=== PATIENT | female | born 1980 | race Caucasian/White ===

== ENCOUNTER 2021-03-18 20:39 | Inpatient (IN) | payer OTHER ==
[~2021-03-18 20:39] MED LIST: Iopamidol-370 76% 500 ML 1 ML ONE
[2021-03-18 21:03] LABS: #Basophils 0.1 thou/uL (0.0-0.2); #Eosinphils 0.1 thou/uL (0.0-0.7); #Lymphocytes 2.3 thou/uL (1.20-3.40); #Monocytes 0.5 thou/uL (0.11-0.59); #Neutrophils 7.2 thou/uL (1.40-6.50); %Basophils 0.9 % (0.0-1.0); %Eosinophils 0.7 % (0.0-10.0); %Lymphocytes 22.6 % (21.0-51.0); %Neutrophils 70.8 % (42.0-75.0); Mean Corpuscular HGB CONC 35.3 g/dL (32.0-36.0); Mean Corpuscular Hemoglobin 33.7 pg (27.0-31.0); Mean Corpuscular Volume 95.5 fL (78.0-98.0); Mean Platelet Volume 8.3 fL (7.4-10.4); Platelet Count 248 thou/uL (130-400); RBC Distribution Width 12.4 % (11.5-14.5); Red Blood Cell (RBC) Count 4.44 mill/uL (4.20-5.40); White Blood Cell (WBC) Count 10.2 thou/uL (4.8-10.8)
[2021-03-18] MEDS ORDERED: Fentanyl 100 MCG/2 ML VIAL ONE ×2 (21:06→22:58)
[2021-03-18 21:13] LABS: Prothrombin Time 13.1 sec (12.0-14.7)
[2021-03-18 21:19] LABS: PTT 22.6 sec (22.9-36.1)
[2021-03-18 22:06] LABS: ALT (SGPT) 99 U/L (8-55); AST (SGOT) 172 U/L (5-34); Albumin 4.1 g/dL (3.5-5.0); Alkaline Phosphatase 67 U/L (40-110); Anion Gap 19 mmol/L (10-20); BUN (Urea Nitrogen) 14 mg/dL (7.0-18.7); Bilirubin, Total 0.5 mg/dL (0.2-1.2); Calc. Creatinine Clearance 0 mL/min (70-130); Calcium 9.1 mg/dL (7.8-10.44); Carbon Dioxide 17 mmol/L (22-29); Chloride 104 mmol/L (98-107); Globulin 3.3 g/dL (2.4-3.5); Glucose 94 mg/dL (70-105); Potassium 3.7 mmol/L (3.5-5.1); Protein, Total 7.4 g/dL (6.0-8.3); Sodium 136 mmol/L (136-145)
[2021-03-18] MEDS ORDERED: traMADol HCl 50 MG TAB PO PRN (22:10)
[2021-03-18] MEDS ORDERED: Dextrose 5% in Water 1,000 ML IV PRN (22:13)
[2021-03-18] MEDS ORDERED: Dextrose 50% Abboject 50 ML SYRINGE SLOW IVP PRN (22:13)
[2021-03-18] MEDS ORDERED: hydrALAZINE 20 MG/ML VIAL SLOW IVP PRN (22:13)
[2021-03-18] MEDS ORDERED: Ondansetron PF 4 MG/2 ML Vial IVP PRN (22:13)
[2021-03-18] MEDS ORDERED: Morphine 4 MG/ML VIAL SLOW IVP PRN (22:23)
[2021-03-18] MEDS ORDERED: Cyclobenzaprine 10 MG TAB PO PRN (22:23)
[2021-03-18] MEDS ORDERED: Lactated Ringer's 1,000 ML IV SCH (22:30)
[2021-03-18 23:32] LABS: Anion Gap 16 mmol/L (10-20); BUN (Urea Nitrogen) 13 mg/dL (7.0-18.7); Calc. Creatinine Clearance 0 mL/min (70-130); Calcium 8.5 mg/dL (7.8-10.44); Carbon Dioxide 18 mmol/L (22-29); Chloride 105 mmol/L (98-107); Glucose 89 mg/dL (70-105); Potassium 3.5 mmol/L (3.5-5.1); Sodium 135 mmol/L (136-145)
[2021-03-19] MEDS ORDERED: Boostrix 0.5 ML (Tdap) VIAL ONE (00:05)
[2021-03-19] MEDS: traMADol HCl 50 MG TAB PO SCH ×4 (01:42→17:25)
[2021-03-19] MEDS: Ibuprofen 200 MG TAB PO SCH ×4 (01:43→17:25)
[2021-03-19] MEDS: Lactated Ringer's 1,000 ML IV SCH ×3 (01:46→11:19)
[2021-03-19 02:16] VITALS: BMI 34.4
[2021-03-19] MEDS ORDERED: Oxazepam 10 MG CAP PO SCH (06:00)
[2021-03-19 06:53] LABS: #Lymphocytes 1.9 thou/uL (1.20-3.40); #Monocytes 0.8 thou/uL (0.11-0.59); #Neutrophils 8.4 thou/uL (1.40-6.50); %Basophils 0.4 % (0.0-1.0); %Eosinophils 0.4 % (0.0-10.0); %Lymphocytes 16.9 % (21.0-51.0); %Monocytes 6.7 % (0.0-10.0); %Neutrophils 75.6 % (42.0-75.0); Mean Corpuscular HGB CONC 33.7 g/dL (32.0-36.0); Mean Corpuscular Hemoglobin 32.4 pg (27.0-31.0); Mean Corpuscular Volume 96.1 fL (78.0-98.0); Mean Platelet Volume 8.6 fL (7.4-10.4); Platelet Count 215 thou/uL (130-400); RBC Distribution Width 12.5 % (11.5-14.5); Red Blood Cell (RBC) Count 4.02 mill/uL (4.20-5.40); White Blood Cell (WBC) Count 11.1 thou/uL (4.8-10.8)
[2021-03-19 07:12] LABS: Magnesium 1.8 mg/dL (1.6-2.6)
[2021-03-19] MEDS: Famotidine/PF 20 mg/2ml Vial SLOW IVP SCH ×2 (11:19→20:39)
[2021-03-19] MEDS: Enoxaparin Sodium 40 MG/0.4 ML SYRINGE SC SCH (11:19)
[2021-03-19] MEDS: Gabapentin 300 MG CAP PO SCH ×3 (11:19→20:39)
[2021-03-19] MEDS: Polyethylene Glycol 3350 17 GM Packet PO SCH (11:19)
[2021-03-19] MEDS: buPROPion 75 MG TAB PO SCH ×2 (11:20→20:40)
[2021-03-19] MEDS: Ascorbic Acid 500 mg Chewable Tablet PO SCH ×2 (11:20→20:39)
[2021-03-19] MEDS: busPIRone HCl 5 MG TAB PO SCH ×2 (11:20→20:39)
[2021-03-19] MEDS: Midodrine HCl 5 MG TAB PO SCH ×3 (11:20→20:39)
[2021-03-19] MEDS: Thiamine 100 MG TAB PO SCH (11:20)
[2021-03-19] MEDS: Folic Acid 1 MG TAB PO SCH (11:20)
[2021-03-19 15:10] LABS: SARS-CoV-2 PCR by NAA Not Detected (NotDetected)
[2021-03-19] MEDS: traZODone HCl 50 MG TAB PO SCH (20:40)
[2021-03-20] MEDS: Ibuprofen 200 MG TAB PO SCH ×5 (00:42→23:19)
[2021-03-20] MEDS: traMADol HCl 50 MG TAB PO SCH ×5 (00:42→23:19)
[2021-03-20] MEDS: buPROPion 75 MG TAB PO SCH ×2 (09:13→21:32)
[2021-03-20] MEDS: Gabapentin 300 MG CAP PO SCH ×3 (09:14→21:33)
[2021-03-20] MEDS: Midodrine HCl 5 MG TAB PO SCH ×3 (09:14→21:33)
[2021-03-20] MEDS: Ascorbic Acid 500 mg Chewable Tablet PO SCH ×2 (09:14→21:32)
[2021-03-20] MEDS: busPIRone HCl 5 MG TAB PO SCH ×2 (09:14→21:33)
[2021-03-20] MEDS: Thiamine 100 MG TAB PO SCH (09:14)
[2021-03-20] MEDS: Folic Acid 1 MG TAB PO SCH (09:14)
[2021-03-20] MEDS: Famotidine/PF 20 mg/2ml Vial SLOW IVP SCH ×2 (09:15→21:33)
[2021-03-20] MEDS: Enoxaparin Sodium 40 MG/0.4 ML SYRINGE SC SCH (09:17)
[2021-03-20] MEDS: Polyethylene Glycol 3350 17 GM Packet PO SCH (09:17)
[2021-03-20] MEDS: traZODone HCl 50 MG TAB PO SCH (21:33)
[2021-03-21] MEDS: Ibuprofen 200 MG TAB PO SCH ×4 (05:40→23:01)
[2021-03-21] MEDS: traMADol HCl 50 MG TAB PO SCH ×4 (05:41→23:01)
[2021-03-21] MEDS: buPROPion 75 MG TAB PO SCH (08:15)
[2021-03-21] MEDS: Midodrine HCl 5 MG TAB PO SCH ×3 (08:16→20:13)
[2021-03-21] MEDS: Ascorbic Acid 500 mg Chewable Tablet PO SCH ×2 (08:16→20:13)
[2021-03-21] MEDS: busPIRone HCl 5 MG TAB PO SCH ×2 (08:16→20:13)
[2021-03-21] MEDS: Gabapentin 300 MG CAP PO SCH ×3 (08:16→20:14)
[2021-03-21] MEDS: Enoxaparin Sodium 40 MG/0.4 ML SYRINGE SC SCH (08:16)
[2021-03-21] MEDS: Folic Acid 1 MG TAB PO SCH (08:17)
[2021-03-21] MEDS: Polyethylene Glycol 3350 17 GM Packet PO SCH (08:17)
[2021-03-21] MEDS: Thiamine 100 MG TAB PO SCH (08:17)
[2021-03-21] MEDS: Famotidine/PF 20 mg/2ml Vial SLOW IVP SCH ×2 (08:17→20:14)
[2021-03-21] MEDS: Acetaminophen 500 MG TAB PO SCH ×3 (11:29→23:39)
[2021-03-21] MEDS: traZODone HCl 50 MG TAB PO SCH (20:12)
[2021-03-21] MEDS: buPROPion HCl 100 MG TAB PO SCH (20:13)
[2021-03-22] MEDS: traMADol HCl 50 MG TAB PO SCH ×3 (06:24→17:18)
[2021-03-22] MEDS: Acetaminophen 500 MG TAB PO SCH ×3 (06:24→17:18)
[2021-03-22] MEDS: Ibuprofen 200 MG TAB PO SCH ×3 (06:25→17:19)
[2021-03-22] MEDS: Gabapentin 300 MG CAP PO SCH ×3 (08:22→19:55)
[2021-03-22] MEDS: busPIRone HCl 5 MG TAB PO SCH ×2 (08:22→19:55)
[2021-03-22] MEDS: Folic Acid 1 MG TAB PO SCH (08:22)
[2021-03-22] MEDS: buPROPion HCl 100 MG TAB PO SCH ×2 (08:22→19:55)
[2021-03-22] MEDS: Polyethylene Glycol 3350 17 GM Packet PO SCH (08:22)
[2021-03-22] MEDS: Famotidine/PF 20 mg/2ml Vial SLOW IVP SCH ×2 (08:22→19:56)
[2021-03-22] MEDS: Enoxaparin Sodium 40 MG/0.4 ML SYRINGE SC SCH (08:22)
[2021-03-22] MEDS: Thiamine 100 MG TAB PO SCH (08:22)
[2021-03-22] MEDS: Ascorbic Acid 500 mg Chewable Tablet PO SCH ×2 (08:22→19:55)
[2021-03-22] MEDS: Midodrine HCl 5 MG TAB PO SCH ×3 (08:22→22:22)
[2021-03-22] MEDS: traZODone HCl 50 MG TAB PO SCH (19:55)
[2021-03-23] MEDS: Acetaminophen 500 MG TAB PO SCH ×3 (00:29→12:32)
[2021-03-23] MEDS: traMADol HCl 50 MG TAB PO SCH ×4 (00:30→15:46)
[2021-03-23] MEDS: Ibuprofen 200 MG TAB PO SCH ×4 (00:31→15:45)
[2021-03-23] MEDS: Ascorbic Acid 500 mg Chewable Tablet PO SCH (08:42)
[2021-03-23] MEDS: Enoxaparin Sodium 40 MG/0.4 ML SYRINGE SC SCH (08:42)
[2021-03-23] MEDS: Thiamine 100 MG TAB PO SCH (08:42)
[2021-03-23] MEDS: busPIRone HCl 5 MG TAB PO SCH (08:42)
[2021-03-23] MEDS: Midodrine HCl 5 MG TAB PO SCH (08:42)
[2021-03-23] MEDS: Famotidine/PF 20 mg/2ml Vial SLOW IVP SCH (08:42)
[2021-03-23] MEDS: buPROPion HCl 100 MG TAB PO SCH (08:42)
[2021-03-23] MEDS: Polyethylene Glycol 3350 17 GM Packet PO SCH (08:42)
[2021-03-23] MEDS: Folic Acid 1 MG TAB PO SCH (08:42)
[2021-03-23] MEDS: Gabapentin 300 MG CAP PO SCH ×2 (08:42→15:46)
[2021-03-23 11:20] VITALS: BP 92/60; TEMP 97.8
== END 2021-03-23 16:00 | DRG 200 ==
LOC: ERS 20:39 → SURG B 22:17
PROVIDERS: ADMIT Surgery; ATTEND Surgery
DX: S27.2XXA Traumatic hemopneumothorax, initial encounter (principal); S22.41XA Multiple fractures of ribs, right side, initial encounter for closed fracture; Z20.822 Contact with and (suspected) exposure to COVID-19; Z23 Encounter for immunization; F32.9 Major depressive disorder, single episode, unspecified; F41.9 Anxiety disorder, unspecified; F43.10 Post-traumatic stress disorder, unspecified; F10.229 Alcohol dependence with intoxication, unspecified; Y90.0 Blood alcohol level of less than 20 mg/100 ml; Z86.73 Personal history of transient ischemic attack (TIA), and cerebral infarction without residual deficits; V86.59XA Driver of other special all-terrain or other off-road motor vehicle injured in nontraffic accident, initial encounter
CPT/HCPCS: 36415; 70450; 71045; 71260; 72125; 74177; 80053; 80307; 83735; 84100; 85025; 85610; 85730; 86850; 86900; 86901; 87635; 90471; 90715; 93005; 96374; 96376; G0390; J1650; J2270; J3010; Q9967; S0028; U0003; U0005

== ENCOUNTER 2021-04-06 16:10 | Outpatient (CLI) | payer OTHER | END 2021-04-06 16:11 | disposition home or self-care (01) | LOC: BICRAD 16:10 | PROVIDERS: ATTEND Surgery | DX: S22.41XD Multiple fractures of ribs, right side, subsequent encounter for fracture with routine healing (principal) | CPT/HCPCS: 71046 ==

== ENCOUNTER 2022-01-12 10:11 | Emergency (ER) | payer OTHER ==
[2022-01-12 10:42] LABS: #Basophils 0.1 thou/uL (0.0-0.2); #Eosinphils 0.1 thou/uL (0.0-0.7); #Lymphocytes 1.6 thou/uL (1.20-3.40); #Monocytes 0.6 thou/uL (0.11-0.59); %Basophils 0.6 % (0.0-1.0); %Eosinophils 1.6 % (0.0-10.0); %Lymphocytes 19.1 % (21.0-51.0); %Monocytes 7.4 % (0.0-10.0); %Neutrophils 71.3 % (42.0-75.0); Mean Corpuscular HGB CONC 33.8 g/dL (32.0-36.0); Mean Corpuscular Hemoglobin 32.9 pg (27.0-31.0); Mean Corpuscular Volume 97.5 fL (78.0-98.0); Mean Platelet Volume 9.2 fL (7.4-10.4); Platelet Count 173 thou/uL (130-400); RBC Distribution Width 12.5 % (11.5-14.5); Red Blood Cell (RBC) Count 3.93 mill/uL (4.20-5.40); White Blood Cell (WBC) Count 8.4 thou/uL (4.8-10.8)
[2022-01-12 10:51] LABS: BHCG - Serum POSITIVE (NEGATIVE); Pregs Control Background? CLEAR/WHITE (CLR/WHITE); Pregs Control Bar Appear? YES (CONTROL BAR)
[2022-01-12 10:57] LABS: INR-International Normal Ratio 0.9; PTT 23.4 sec (22.9-36.1); Prothrombin Time 12.4 sec (12.0-14.7)
[2022-01-12 11:08] LABS: ALT (SGPT) 15 U/L (8-55); AST (SGOT) 17 U/L (5-34); Albumin 3.7 g/dL (3.5-5.0); Alkaline Phosphatase 52 U/L (40-110); Anion Gap 16 mmol/L (10-20); BUN (Urea Nitrogen) 10 mg/dL (7.0-18.7); Bilirubin, Total 0.2 mg/dL (0.2-1.2); Calc. Creatinine Clearance 0 mL/min (70-130); Calcium 9.1 mg/dL (7.8-10.44); Carbon Dioxide 17 mmol/L (22-29); Chloride 107 mmol/L (98-107); Globulin 3.3 g/dL (2.4-3.5); Glucose 102 mg/dL (70-105); Potassium 4.3 mmol/L (3.5-5.1); Sodium 136 mmol/L (136-145)
[2022-01-12] MEDS ORDERED: Iopamidol-370 76% 500 ML 1 ML ONE (12:37)
[2022-01-12 12:44] LABS: Bilirubin Negative (Negative); Blood, Urine Negative (Negative); Clarity Clear (Clear); Glucose, Urine (Dipstick) Normal (Negative); Ketone, Urine Negative (Negative); Leukocyte Negative Leu/uL (Negative); Nitrite Negative (Negative); Protein, Urine (Dipstick) Negative (Neg-Trace); Specific Gravity, Urine 1.048 (1.002-1.036); Urobilinogen Normal mg/dL (Less than 2); pH, Urine 7.5 (5.0-9.0)
[2022-01-12] MEDS ORDERED: Aspirin Chewable 81 MG TAB ONE (12:56)
== END 2022-01-12 14:18 | disposition short-term general hospital (02) ==
LOC: ERS 10:11
DX: O99.282 Endocrine, nutritional and metabolic diseases complicating pregnancy, second trimester (principal); G45.9 Transient cerebral ischemic attack, unspecified; Z3A.20 20 weeks gestation of pregnancy
CPT/HCPCS: 36415; 36416; 70450; 70496; 70498; 76815; 80053; 81003; 84484; 84702; 84703; 85025; 85610; 85730; 86900; 86901; 93005; Q9967